=== PATIENT | male | born 1975 | race Caucasian/White ===

== ENCOUNTER 2019-05-11 06:35 | Emergency (ER) | payer SELFPAY ==
[2019-05-11] MEDS ORDERED: PHENOBARBITAL INJ 65 MG/ML VIAL IV ONE ×2 (06:41→06:51)
--- NOTE | 2019-05-11 06:45 | ER Document Report ---
ED General - General Stated Complaint: POSSIBLE SEIZURE Time Seen by Provider: 05/11/19 06:41 Notes: 43-year-old male presents with seizure activity witnessed by roommate at alcohol rehab. He is has not had a drink in 2 days. He denies a history of seizures. He denies a history of hallucinations both visual and tactile, and he says he has not actually stopped drinking for more than 2 days for a very long time. He also has a history of anxiety. Bit his tongue blood sugar normal tachycardic and tremulous for EMS. - Related Data Allergies/Adverse Reactions: No Known Allergies Allergy (Unverified 05/11/19 07:00) Past Medical History - Social History Smoking Status: Current Every Day Smoker Family History: None Review of Systems - Review of Systems Notes: REVIEW OF SYSTEMS GEN: Denies fever, chills, weight loss ENT: Denies sore throat, nasal discharge, ear pain EYES: Denies blurry vision, eye pain, discharge CV: Denies chest pain, palpitations, edema RESP: Denies cough, shortness of breath, wheezing GI: Denies abdominal pain, nausea, vomiting, diarrhea MSK: Denies joint pain/swelling, edema, SKIN: Denies rash, skin lesions LYMPH: Denies swollen glands/lymph nodes NEURO: Possible seizure activity PSYCH: Diet a PHYSICAL EXAMINATION General: No acute distress, well-nourished Head: Atraumatic, normocephalic ENT: Mouth normal, oropharynx moist, no exudates or tonsillar enlargement left- sided tongue ecchymosis. Eyes: Conjunctiva normal, pupils equal, lids normal Neck: No JVD, supple, no guarding CVS: Tachycardic regular rhythm, no murmurs Resp: No resp distress, equal and normal breath sounds bilaterally GI: Nondistended, soft, no tenderness to palpation, no rebound or guarding Ext: No deformities, no edema, normal range of motion in upper and lower ext Back: No CVA or midline TTP Skin: No rash, warm Lymphatic: No lymphadeopathy noted Neuro: Tremor worse on intention of all extremities and tongue, GCS 15 : No hallucinations Physical Exam - Vital signs Vitals: Temp Pulse Resp BP Pulse Ox 98.6 F 132 H 18 165/103 H 99 05/11/19 06:38 05/11/19 06:38 05/11/19 06:38 05/11/19 06:38 05/11/19 06:38 Course - Re-evaluation Re-evalutation: 05/11/19 06:44 43-year-old male with anxiety and alcohol cessation presents with alcoholrelated seizure, and mild to moderate alcohol withdrawal clinically No signs of delusion or hallucination We will give fluids, check basic metabolic panel to rule out electrolyte disturbance, and treat with phenobarbital load slightly less than 20/kg given that he is had no benzos already. 05/11/19 07:14 Patient has no focal deficits and despite his lack of seizure history given he has a precipitating event I do not think imaging is needed today Patient was given phenobarbital. Prior to that his heart rate are to come down to the 110 range. 05/11/19 07:22 Reevaluated 7:20 AM. After receiving phenobarbital. Alert and oriented x3 now has full memory of what happened. Says that he did not sleep all night, was feeling slightly anxious and felt "weird" and woke up with paramedics. Patient is stable for discharge back to facility. Nurses will call report I did discuss the option of medication such as benzos/phenobarbital at the facility. Note for: Critical care billing Initially expected patient to be admitted but the patient improved rapidly and was able to be discharged I have discussed with the patient there likely diagnosis, aftercare plan, follow-up plans and my usual and customary return precautions. They verbalized understanding of this. - Vital Signs Vital signs: Temp Pulse Resp BP Pulse Ox 98.6 F 132 H 19 147/102 H 99 05/11/19 06:38 05/11/19 06:38 05/11/19 07:01 05/11/19 07:01 05/11/19 07:01 - Laboratory Result Diagrams: 05/11/19 06:45 Critical Care Note - Critical Care Note Total time excluding time spent on procedures (mins): 31 Comments: The above patient is critically ill. Not including procedures, but including direct re-evaluations, speaking with patient and/or consultants, interpreting results, and documenting, I spent the total amount of minute listed listed above on critical care time Discharge - Discharge Clinical Impression: Moderate alcohol withdrawal without perceptual disturbances Qualifiers: Complication of substance-induced condition: uncomplicated Qualified Code(s): F10.230 - Alcohol dependence with withdrawal, uncomplicated Condition: Good Disposition: HOME, SELF-CARE Instructions: Alcohol Withdrawl ([facility]) Additional Instructions: It is safe to go back to your rehab facility.
[2019-05-11 07:16] LABS: BLOOD UREA NITROGEN 8 mg/dL (7-20); CALCIUM 9.6 mg/dL (8.4-10.2); CARBON DIOXIDE 17 mmol/L (22-30); CHLORIDE 97 mmol/L (98-107); GLUCOSE 182 mg/dL (75-110); POTASSIUM 3.5 mmol/L (3.6-5.0)
[2019-05-11 07:26] LABS: ANION GAP 20 (5-19)
[2019-05-11 07:58] VITALS: BP 131/95
== END 2019-05-11 07:59 | disposition home or self-care (01) ==
LOC: ER 06:35
DX: F10.230 Alcohol dependence with withdrawal, uncomplicated (principal); G40.89 Other seizures; E87.1 Hypo-osmolality and hyponatremia; E87.6 Hypokalemia; S00.532A Contusion of oral cavity, initial encounter; X58.XXXA Exposure to other specified factors, initial encounter; F41.9 Anxiety disorder, unspecified; F17.200 Nicotine dependence, unspecified, uncomplicated
CPT/HCPCS: 99291; 96374; 36415; 80048; J2560